=== PATIENT | female | born 2000 | race African-American/Black ===

== ENCOUNTER 2023-12-22 02:39 | Emergency (ER) | payer OTHER, MEDICAID, SELFPAY ==
[2023-12-22 02:41] VITALS: BP 127/74; PULSE 90; RESP 18; TEMP 36.8; O2SAT 99; BMI 36.0
--- NOTE | 2023-12-22 03:09 | MHC.EDTECH ---
Patient brought into triage area,labs,and urine obtained and sent to lab.
[2023-12-22 03:14] LABS: MANUAL DIFF FLAG NO
[2023-12-22 03:16] LABS: Basophils Percent Auto 0.6 % (0-2); Eosinophils Absolute Auto 0.1 X10*3/uL (0.0-0.4); Eosinophils Percent Auto 1.3 % (0-4); Hemoglobin 11.4 g/dl (12.0-16.0); Imm Gran Abs Auto 0.01 X10*3/uL (0.00-0.03); Imm Gran Pct Auto 0.1 % (0.0-0.4); Lymphocytes Absolute Auto 1.8 X10*3/uL (1.2-4.9); Lymphocytes Percent Auto 26.3 % (20-40); Mean Corpuscular HGB Conc 34.5 g/dl (31.0-35.0); Mean Corpuscular Hemoglobin 30.6 pg (27.0-33.0); Mean Corpuscular Volume 88.5 fL (80.0-98.0); Mean Platelet Volume 9.5 fL (9.4-12.3); Monocytes Absolute Auto 0.5 X10*3/uL (0.1-1.2); Monocytes Percent Auto 6.5 % (2-11); Neutrophils Absolute Auto 4.5 x10*3/uL (2.0-8.3); Neutrophils Percent Auto 65.2 % (45-73); Platelet Count 368 X10*3/uL (160-400); Red Blood Count 3.73 X10*6/uL (4.20-5.50); Red Cell Distribution Width 13.6 % (11.0-16.0); White Blood Count 6.9 X10*3/uL (4.8-10.8)
[2023-12-22 03:18] LABS: Appearance Urine Cloudy; Color Urine Yellow; Glucose Urine UA Negative (Negative); Leukocyte Esterase Urine Large (3+) (Negative); Nitrite Urine Negative (Negative); Specific Gravity - Urine 1.015 (1.005-1.025); UMIC TRIGGER UACC YES; UPreg QC Valid YES; Urine Blood Trace (Negative); Urine Ketones Negative (Negative); Urine Pregnancy NEGATIVE (NEGATIVE); Urine Protein 30 (1+) mg/dL (Neg-Trace)
[2023-12-22 03:21] LABS: Bacteria Urine 3+ (None Seen); Hyaline Casts Urine 0-2 /LPF (0-2); Squamous Epithelial Cell Urine 0-2 /HPF (0-2); UACC Culture Trigger YES; WBC Urine >50 /HPF (0-5)
[2023-12-22 03:31] LABS: Alanine Aminotransferase 11 U/L (0-31); Albumin Level 3.7 g/dL (3.5-5.0); Alkaline Phosphatase 80 U/L (39-117); Anion Gap 13 (12-20); Aspartate Amino Transferase 15 U/L (5-31); Bilirubin Total 0.1 mg/dL (0.0-1.0); Blood Urea Nitrogen 9 mg/dL (9-16); Carbon Dioxide 23 mmol/L (22-29); Chloride 107 mmol/L (96-108); Creatinine Clr Calc Pharmacy 136.8; Estimated Glomerular Filt Rate > 60; Glucose Random 102 mg/dL (60-115); Lipase 12 U/L (8-78); Sodium 139 mmol/L (135-145); Total Protein 7.2 g/dL (6.5-8.0)
[2023-12-22 06:34] VITALS: BP 118/70; PULSE 88; RESP 18; TEMP 36.6; O2SAT 99
--- NOTE | 2023-12-22 06:54 | ED_ITS ---
HPI - Female Genitourinary General Chief complaint: Urogenital-Female Stated complaint: stomach pain/lower back pain Time Seen by Provider: 12/22/23 06:54 History of Present Illness HPI Narrative: The patient is a 23-year-old female who says that she has felt unwell for about 5 days. She says it started with back pain subsequently developed abdominal discomfort. She also has discomfort with urination. She does not think she has had a fever or chills. She has been taking acetaminophen. Her last sexual intercourse was about a week and a half ago. No dyspareunia. No vaginal discharge. Related Data Previous Rx's ?Medication ?Instructions ?Recorded cefuroxime axetil 500 mg tablet 500 mg PO BID #14 tabs 12/22/23 ibuprofen 600 mg tablet 600 mg PO Q6H PRN pain #14 tabs 12/22/23 Allergies Allergy/AdvReac Type Severity Reaction Status Date / Time No Known Allergies Allergy Verified 12/22/23 02:44 Review of Systems 2 Review of Systems: Yes all other systems are reviewed and are negative [facility] Social History Social History Smoked in Last 30 Days: No Use of substances other than those prescribed or required for medical reasons: No Advance Directives: No Do you have a plan to hurt others: No Plan Physical Exam 2 Vital Signs: Vital Signs: Last Vital Signs Temp 0 F L 12/22/23 12:18 Pulse 75 12/22/23 12:18 Resp 18 12/22/23 12:18 BP 113/73 12/22/23 12:18 Pulse Ox 100 12/22/23 12:18 O2 Del Method Room Air 12/22/23 12:18 BMI result Body Mass Index 36.0 Const: Other: The patient is a 23-year-old female who was awake and alert. She looks somewhat uncomfortable. She seems to have discomfort moving around HEENT: Other: Face is unremarkable to inspection. Mucous membranes moist. Face is symmetrical. Eyes: Other: Pupils are round equal, conjunctivae are clear, extraocular movements intact Neck: Other: Neck is supple Resp: Effort & Inspection: normal respiratory effort Auscultation: clear to auscultation bilaterally Cardio: Rate: regular rate Rhythm: regular rhythm Heart sounds: S1 normal heart sound present and S2 normal heart sound present GI: Other: The abdomen seems soft. There seemed to be some left lower quadrant tenderness without significant rebound or guarding. Back/Spine/Pelvis: Other: There is possibly some left-sided CVA percussion tenderness. Skin: Other: Skin is dry and unremarkable Neuro: Other: The patient is awake and alert with a normal mental status Extrem: Other: No peripheral edema Medications Administered Discontinued Medications Generic Name Dose Route Start Last Admin Trade Name Feli PRN Reason Stop Dose Admin Sodium Chloride 1,000 mls @ 999 mls/hr 12/22/23 07:15 12/22/23 11:09 Ns IV 12/22/23 08:15 Infused .Q1H1M RICK Infusion Ceftriaxone Sodium 1 gm/ 50 mls @ 100 mls/hr 12/22/23 08:50 12/22/23 11:09 Sodium Chloride IV 12/22/23 09:19 Infused ONCE ONE Infusion Ketorolac Tromethamine 15 mg 12/22/23 07:02 12/22/23 07:42 Ketorolac Tromethamine 15 Mg/Ml Vial IVPUSH 12/22/23 07:03 15 mg ONCE ONE Administration Medical Decision Making Medical Decision Making [facility] Narrative: The patient is a 23-year-old female who presents with lower mid abdominal pain, back pain, and urinary discomfort. She denies any history of vaginal discharge. On exam she seemed to have some possible left-sided CVA percussion tenderness. Given the absence of fever or tachycardia or changes in her inflammatory markers on her blood work it is questionable whether she has true pyelonephritis. In any event she was given 1 g of IV ceftriaxone in case this is mild left-sided pyelonephritis and she will be discharged with a prescription for cefuroxime 500 mg b.i.d. x7 days. Her urinalysis was consistent with UTI. A urine specimen for GC and chlamydia was negative for both. The patient is new in this area and has not yet established a PCP. She was given contact information for 2 different doctors offices. She should return if worse. Lab Data 12/22/23 03:08 12/22/23 03:08 Labs: Lab Results 12/22/23 12/22/23 Range/Units 03:08 08:59 WBC 6.9 (4.8-10.8) X10*3/uL RBC 3.73 L (4.20-5.50) X10*6/uL Hgb 11.4 L (12.0-16.0) g/dl Hct 33.0 L (37.0-47.0) % MCV 88.5 (80.0-98.0) fL MCH 30.6 (27.0-33.0) pg MCHC 34.5 (31.0-35.0) g/dl RDW 13.6 (11.0-16.0) % Plt Count 368 (160-400) X10*3/uL MPV 9.5 (9.4-12.3) fL Immature Gran % (Auto) 0.1 (0.0-0.4) % Neut % (Auto) 65.2 (45-73) % Lymph % (Auto) 26.3 (20-40) % [place] % (Auto) 6.5 (2-11) % Eos % (Auto) 1.3 (0-4) % Baso % (Auto) 0.6 (0-2) % Lymph # (Auto) 1.8 (1.2-4.9) X10*3/uL [place] # (Auto) 0.5 (0.1-1.2) X10*3/uL Eos # (Auto) 0.1 (0.0-0.4) X10*3/uL Baso # (Auto) 0.0 (0.0-0.2) X10*3/uL Abs Immat Gran (auto) 0.01 (0.00-0.03) X10*3/uL Absolute Neuts (auto) 4.5 (2.0-8.3) x10*3/uL Absolute Nucleated RBC 0.000 (0.0-0.012) X10*3/uL Nucleated RBC % (auto) 0.0 (0.0-0.2) /100WBC Sodium 139 (135-145) mmol/L Potassium 4.0 (3.3-5.1) mmol/L Chloride 107 (96-108) mmol/L Carbon Dioxide 23 (22-29) mmol/L Anion Gap 13 (12-20) BUN 9 (9-16) mg/dL Creatinine 0.71 (0.5-1.4) mg/dL Estim Creat Clear Calc 136.8 Estimated GFR > 60 Random Glucose 102 (60-115) mg/dL Calcium 9.0 (8.4-10.2) mg/dL Total Bilirubin 0.1 (0.0-1.0) mg/dL AST 15 (5-31) U/L ALT 11 (0-31) U/L Alkaline Phosphatase 80 (39-117) U/L C-Reactive Protein 0.72 H (< or = 0.50) mg/dL Total Protein 7.2 (6.5-8.0) g/dL Albumin 3.7 (3.5-5.0) g/dL Lipase 12 (8-78) U/L Urine Color Yellow Urine Appearance Cloudy Urine pH 7.0 (5.0-9.0) Ur Specific [place] 1.015 (1.005-1.025) Urine Protein 30 (1+) H (Neg-Trace) mg/dL Urine Glucose (UA) Negative (Negative) mg/dL Urine Ketones Negative (Negative) mg/dL Urine Blood Trace H (Negative) Urine Nitrite Negative (Negative) Ur Leukocyte Esterase Large (3+) H (Negative) Urine RBC 6-10 H (0-2) /HPF Urine WBC >50 H (0-5) /HPF Ur Squamous Epith Cells 0-2 (0-2) /HPF Urine Bacteria 3+ (None Seen) Hyaline Casts 0-2 (0-2) /LPF Urine Test NEGATIVE (NEGATIVE) Chlam trachomat DNA PCR NOT DETECTED (Not Detect.) N.gonorrhoeae DNA (PCR) NOT DETECTED (Not Detect.) Discharge Plan Discharge Clinical Impression: Urinary tract infection Patient Disposition: Home, Self-Care Instructions: Urinary Tract Infection in Women (ED) Additional Instructions: You seem to have a urinary tract infection. It is possible the infection may be slightly involving your left kidney and therefore you are getting 7 days of antibiotics which is more than the 3 days for a simple UTI. Please take the prescribed antibiotic twice a day until done. Next dose this evening. I have also sent a prescription for ibuprofen which you may use as needed for discomfort. Please work on getting a new primary care doctor. You may try contacting Dr. Ramirez or the [facility]. Return to the emergency room if significantly worse. Prescriptions: New cefuroxime axetil 500 mg tablet 500 mg PO BID Qty: 14 0RF ibuprofen 600 mg tablet 600 mg PO Q6H PRN (Reason: pain) Qty: 14 0RF Referrals: [facility] [Provider Group] (UTI, needs new PCP) Ana Ramirez MD [Physician] - (UTI, needs new PCP) Interventions: ED Discharge Assessment Last Done: 12/22/23 12:18 Discharge Date/Time: 12/22/23 12:19 Print Language: Mozambican
[2023-12-22 07:18] VITALS: BP 109/69; PULSE 69; RESP 16; TEMP 36.6; O2SAT 100
[2023-12-22 07:24] LABS: C Reactive Protein 0.72 mg/dL (< or = 0.50)
[2023-12-22] MEDS: Ketorolac Tromethamine 15 MG/ML VIAL IVPUSH (07:42)
[2023-12-22] MEDS: 0.9 % Sodium Chloride 1,000 ML 999 ML IV (07:42)
[2023-12-22] MEDS: cefTRIAXone sodium 1 GM in 0.9 % Sodium Chloride 50 ML IV (09:24)
[2023-12-22 10:11] VITALS: BP 121/71; PULSE 75; RESP 14; TEMP 36.6; O2SAT 99
[2023-12-22 12:17] VITALS: BP 113/73; PULSE 75; RESP 18; O2SAT 100
[2023-12-22 12:18] VITALS: BP 113/73; PULSE 75; RESP 18; TEMP -17.7; TEMP 0; O2SAT 100
[2023-12-22 14:53] LABS: CT PCR NOT DETECTED (Not Detect.); NG PCR NOT DETECTED (Not Detect.)
== END 2023-12-22 12:19 | disposition home or self-care (01) ==
PROVIDERS: Emergency Provider Emergency Medicine
DX: N39.0 Urinary tract infection, site not specified (principal); R30.9 Painful micturition, unspecified; R10.9 Unspecified abdominal pain; M54.9 Dorsalgia, unspecified
CPT/HCPCS: 0353U; 36415; 80053; 81001; 81025; 83690; 85025; 86140; 87086; 87088; 87186; 96361; 96374; 96375; 99284; J0696; J1885

== ENCOUNTER 2024-01-26 10:46 | Outpatient (REF) | payer OTHER, MEDICAID, SELFPAY ==
[2024-01-26 11:37] LABS: MANUAL DIFF FLAG NO
[2024-01-26 11:40] LABS: Basophils Percent Auto 0.6 % (0-2); Eosinophils Absolute Auto 0.1 X10*3/uL (0.0-0.4); Eosinophils Percent Auto 2.4 % (0-4); Hematocrit 36.7 % (37.0-47.0); Hemoglobin 12.4 g/dl (12.0-16.0); Imm Gran Abs Auto 0.03 X10*3/uL (0.00-0.03); Imm Gran Pct Auto 0.6 % (0.0-0.4); Lymphocytes Absolute Auto 2.1 X10*3/uL (1.2-4.9); Lymphocytes Percent Auto 39.5 % (20-40); Mean Corpuscular HGB Conc 33.8 g/dl (31.0-35.0); Mean Corpuscular Hemoglobin 30.6 pg (27.0-33.0); Mean Corpuscular Volume 90.6 fL (80.0-98.0); Monocytes Absolute Auto 0.4 X10*3/uL (0.1-1.2); Monocytes Percent Auto 7.9 % (2-11); Neutrophils Absolute Auto 2.6 x10*3/uL (2.0-8.3); Platelet Count 415 X10*3/uL (160-400); Red Blood Count 4.05 X10*6/uL (4.20-5.50); Red Cell Distribution Width 13.9 % (11.0-16.0); White Blood Count 5.3 X10*3/uL (4.8-10.8)
[2024-01-26 11:46] LABS: Estimated Average Glucose 117 mg/dL; Hemoglobin A1c % 5.7 % (<6.0)
[2024-01-26 12:08] LABS: Creatinine Urine 133.48 mg/dL; Total Protein Urine Random < 7 mg/dL (<12)
[2024-01-26 12:11] LABS: Alanine Aminotransferase 12 U/L (0-31); Albumin Level 4.1 g/dL (3.5-5.0); Alkaline Phosphatase 81 U/L (39-117); Anion Gap 9 (12-20); Aspartate Amino Transferase 21 U/L (5-31); Bilirubin Total 0.2 mg/dL (0.0-1.0); Blood Urea Nitrogen 10 mg/dL (9-16); Calcium 9.6 mg/dL (8.4-10.2); Carbon Dioxide 27 mmol/L (22-29); Chloride 107 mmol/L (96-108); Cholesterol 234 mg/dL (<200); Estimated Glomerular Filt Rate > 60; Glucose Random 81 mg/dL (60-115); HDL Cholesterol 37 mg/dL (>40); LDL Cholesterol Calculated 171 mg/dL (<100); Sodium 139 mmol/L (135-145); Total Protein 8.1 g/dL (6.5-8.0); Triglycerides 133 mg/dL (<150)
[2024-01-26 12:28] LABS: Thyroid Stimulating Hormone 1.48 uIU/mL (0.32-4.0)
[2024-01-31 21:53] LABS: TS Negative Control Passed; TS Panel A 1; TS Panel B 4; TS Positive Control Passed; TSpotTB Negative (Negative)
== END 2024-01-26 10:47 | disposition home or self-care (01) ==
LOC: HO.10HDL 10:46
PROVIDERS: Visit Provider Internal Medicine
DX: Z00.01 Encounter for general adult medical examination with abnormal findings (principal); R73.01 Impaired fasting glucose; I10 Essential (primary) hypertension; E66.9 Obesity, unspecified; Z11.1 Encounter for screening for respiratory tuberculosis
CPT/HCPCS: 36415; 80053; 80061; 82570; 83036; 84156; 84443; 85025; 86481

== ENCOUNTER 2024-04-26 09:25 | Outpatient (REF) | payer MEDICAID, SELFPAY ==
[2024-04-26 11:56] LABS: HBS Num1 8.19 mIU/mL (0-7.99)
[2024-04-26 13:23] LABS: HBS Num2 7.94 mIU/mL (0-7.99); HBS Num3 8.16 mIU/mL (0-7.99)
[2024-04-26 13:24] LABS: ~Hepatitis B Surface Antibody GRAYZONE (Nonreactive)
[2024-04-28 06:23] LABS: Varicella IgG Antibody 5.89 S/CO
== END 2024-04-26 09:26 | disposition home or self-care (01) ==
LOC: HO.10HDL 09:25
PROVIDERS: Visit Provider Internal Medicine
DX: Z01.84 Encounter for antibody response examination (principal); E78.00 Pure hypercholesterolemia, unspecified; I10 Essential (primary) hypertension; N30.00 Acute cystitis without hematuria; R63.5 Abnormal weight gain
CPT/HCPCS: 36415; 86706; 86735; 86762; 86765; 86787

== ENCOUNTER 2024-06-03 12:29 | Emergency (ER) | payer MEDICAID, SELFPAY ==
--- NOTE | ~2024-06-03 | XR_ITS ---
EXAMINATION: XR CHEST CLINICAL INFORMATION: dyspnea on exertion COMPARISON: None available. TECHNIQUE: PA and lateral views of the chest were obtained. FINDINGS: The lungs are hypoexpanded with bibasilar streaky opacities. No dense focal consolidation, effusion, edema, or pneumothorax. The cardiomediastinal silhouette is within normal limits for technique. No acute osseous abnormality. XR/XR chest 2V IMPRESSION: Low lung volumes with bibasilar atelectasis. Electronically signed by: Osiris Koenig DO 06/03/2024 07:12 PM EDT
[2024-06-03 12:46] VITALS: BP 132/79; PULSE 100; RESP 18; TEMP 37.1; O2SAT 100; BMI 38.1
--- NOTE | 2024-06-03 12:46 | ED_ITS ---
HPI - General Adult General Chief complaint: Dyspnea Stated complaint: diff breathing Time Seen by Provider: 06/03/24 15:30 Source: patient Mode of arrival: ambulatory Limitations: no limitations History of Present Illness ED Provider: Dr. Sreekanth Ramirez HPI narrative: 24-year-old female with no significant past medical history who presents emergency department for evaluation of pleuritic chest pain and shortness of breath times 4 days. She states that her chest pain initially came on at rest 4 days prior while she was reading out loud. She states that she felt better but over the last several days she has noticed increased dyspnea on exertion, chest pain worse with breathing and chest pain with lying flat. She states that today while she was walking up the hill to get to the hospitalist she became very winded and fatigued why the time she made it to the hospital. Patient points to her anterior chest when asked to localize her pain. She describes the pain as a sharp pain worse with breathing. She denied associated symptoms such as fever, chills, rhinorrhea, sore throat, cough. She was not on control pills. She was not gone on a long trips or had any recent surgeries. The patient uses an aislinn to track her menstrual periods and states that her last menstrual period was May 08 to May 11. She states that the aislinn identified ovulation between May 18 and May 20. The patient did have sex on May 20. The patient was not trying to get . The next day she took plan B One step. The patient is a . Related Data Previous Rx's ?Medication ?Instructions ?Recorded cefuroxime axetil 500 mg tablet 500 mg PO BID #14 tabs 12/22/23 ibuprofen 600 mg tablet 600 mg PO Q6H PRN pain #14 tabs 12/22/23 Allergies Allergy/AdvReac Type Severity Reaction Status Date / Time No Known Allergies Allergy Verified 06/03/24 12:48 Review of Systems 2 Review of Systems: Yes all other systems are reviewed and are negative [facility] Past Medical History [facility] Narrative: Social history: She denies tobacco, alcohol and drug use. Social History Social History Advance Directives: No Advance Directives Information Provided: No Do you have a plan to hurt others: No Plan Physical Exam ED Vital Signs: Vital Signs - 24 hr 06/03/24 12:46 06/03/24 15:01 06/03/24 16:46 Temperature 98.7 F 97.8 F 98.3 F Pulse Rate 100 73 71 Respiratory Rate 18 14 14 Blood Pressure 132/79 111/59 L 123/79 Pulse Oximetry 100 100 100 Oxygen Delivery Method Room Air Room Air Room Air 06/03/24 19:13 Temperature 98.3 F Pulse Rate 71 Respiratory Rate 14 Blood Pressure 123/79 Pulse Oximetry 100 Oxygen Delivery Method Room Air BMI result Body Mass Index 38.1 Patient's vital signs revealed an elevated heart rate at 100 Exam: General: Awake, alert in no distress Head: Normocephalic, atraumatic EENT: PERRL, Lids normal, sclera normal, conjunctiva normal, nose normal , ears normal, throat without erythema or exudates Neck: Supple, no adenopathy Lung: breath sounds symmetric, no wheezing, rales or rhonchi Chest: symmetric movement, nontender Heart: regular rate and rhythm, normal S1, S2 no murmurs or rubs Abdomen: soft, non-tender, nondistended, normal bowel sounds Back: no vertebral tenderness, no CVAT Extremities: no deformities, moves all extremities symmetrically Neuro: Awake, alert, oriented, normal speech, cranial nerves intact, moves all extremities symmetrically Psych: Pleasant, cooperative Course Course Course Narrative: This is a Rapid Medical Examination (RME) performed by Yovana Still PA-C in triage. Full HPI, ROS, assessment and treatment plan per primary provider in the Main ED. 24 yo female here for eval of shortness of breath x4 days, worse with exertion and laying down. endorses sharp chest pain w/ deep breathing. no OCP. no recent travel/ long car rides. no known sick contacts. no hx asthma. +tachycardic. obese female. lungs clear. no adventitious breath sounds. Plan: labs, EKG, cxr Reevaluation(s) Reevaluation #1: The patient was signed out to me at change of shift pending the results of a D- dimer. The D-dimer came back undetectable. The patient was looking clinically well. There is a strange question of whether she is or not. Her urine test is negative but her serum beta HCG is 19. The patient was eager to be discharged from the emergency department. I recommended we do a chest x- ray given her description of her symptoms. Chest x-ray was read as showing low lung volumes with bibasilar atelectasis but no other acute findings. On exam I did not feel she was wheezing. She was eager to be discharged from the emergency room I think she should follow up with her PCP with regard to her shortness of breath and she should follow up with OBGYN regarding whether she actually has a viable or not. She had apparently taken plan B several days ago. Medical Decision Making Medical Decision Making [facility] Narrative: 24-year-old female with no significant past medical history who presents emergency department for evaluation of pleuritic chest pain worse with lying down flat, and shortness of breath times 4 days. Patient denied fever, chills, cough, rhinorrhea, lower extremity pain or swelling. Patient is not on control pills in his not gone on any long trips. Vital signs did reveal an elevated heart rate of 100 otherwise unremarkable. Physical examination was unremarkable. Differential diagnosis: ?Includes but is not limited to pleuritic chest pain, pulmonary embolism, myocardial infarction, myocardial ischemia, pericarditis, , electrolyte abnormalities, anemia Following evaluation was ordered: CBC, CMP, lipase, magnesium, PT/INR, D-dimer, troponin, TSH, quantitative beta-hCG, urinalysis, urine test, COVID- 19, influenza, RSV Course: 16:31 My impression patient's laboratory evaluation is as follows: CBC and CMP were normal. Troponin was below detectable limits. COVID-19, RSV and influenza were negative. TSH was normal. Urinalysis positive leukocyte esterase, microscopic 6-10 WBCs, 6-10 squamous cells, trace bacteria-not consistent with a urinary tract infection. Urine test was negative. Quantitative beta-hCG was 19. The patient had an elevated heart rate of 100 therefore she was PERC positive. Patient also has a positive quantitative beta-hCG and based on her last menstrual period, time of ovulation and time when she had intercourse that is possible she could be despite taking plan B step One within 72 hours of intercourse. Therefore, I did order a D-dimer which is pending. I did discuss these findings with the patient. At the end of my shift, I did sign the patient's care over to my colleague, Dr. Samy Butler Admission/Observation Consideration of admission/observation: Escalation of care including admission/observation considered (Yes) Lab Data [facility] Lab Attestation statement: I reviewed the patient's lab results. 06/03/24 13:09 06/03/24 13:09 Labs: Lab Results 06/03/24 06/03/24 Range/Units 13:09 15:05 WBC 5.7 (4.8-10.8) X10*3/uL RBC 4.15 L (4.20-5.50) X10*6/uL Hgb 12.3 (12.0-16.0) g/dl Hct 37.0 (37.0-47.0) % MCV 89.2 (80.0-98.0) fL MCH 29.6 (27.0-33.0) pg MCHC 33.2 (31.0-35.0) g/dl RDW 14.0 (11.0-16.0) % Plt Count 390 (160-400) X10*3/uL MPV 9.8 (9.4-12.3) fL Immature Gran % (Auto) 0.4 (0.0-0.4) % Neut % (Auto) 57.6 (45-73) % Lymph % (Auto) 32.0 (20-40) % [place] % (Auto) 6.7 (2-11) % Eos % (Auto) 2.8 (0-4) % Baso % (Auto) 0.5 (0-2) % Lymph # (Auto) 1.8 (1.2-4.9) X10*3/uL [place] # (Auto) 0.4 (0.1-1.2) X10*3/uL Eos # (Auto) 0.2 (0.0-0.4) X10*3/uL Baso # (Auto) 0.0 (0.0-0.2) X10*3/uL Abs Immat Gran (auto) 0.02 (0.00-0.03) X10*3/uL Absolute Neuts (auto) 3.3 (2.0-8.3) x10*3/uL Absolute Nucleated RBC 0.000 (0.0-0.012) X10*3/uL Nucleated RBC % (auto) 0.0 (0.0-0.2) /100WBC PT 12.3 (10.9-12.4) SEC INR 1.1 (0.9-1.1) D-Dimer High Sensitivty < 150 NG/ML Sodium 139 (135-145) mmol/L Potassium 3.9 (3.3-5.1) mmol/L Chloride 106 (96-108) mmol/L Carbon Dioxide 27 (22-29) mmol/L Anion Gap 10 L (12-20) BUN 9 (9-16) mg/dL Creatinine 0.73 (0.5-1.4) mg/dL Estim Creat Clear Calc 136.0 Estimated GFR > 60 Random Glucose 95 (60-115) mg/dL Calcium 9.6 (8.4-10.2) mg/dL Magnesium 2.0 (1.6-2.6) mg/dL Total Bilirubin 0.2 (0.0-1.0) mg/dL AST 21 (5-31) U/L ALT 17 (0-31) U/L Alkaline Phosphatase 85 (39-117) U/L Troponin I High Sens < 2.7 (<3.5-17.0) ng/L Total Protein 7.5 (6.5-8.0) g/dL Albumin 3.9 (3.5-5.0) g/dL Lipase 13 (8-78) U/L TSH 1.18 (0.32-4.0) uIU/mL Beta HCG, Quant 19 mIU/mL Urine Color Yellow Urine Appearance Clear Urine pH 7.5 (5.0-9.0) Ur Specific [place] 1.015 (1.005-1.025) Urine Protein Negative (Neg-Trace) mg/dL Urine Glucose (UA) Negative (Negative) mg/dL Urine Ketones Negative (Negative) mg/dL Urine Blood Negative (Negative) Urine Nitrite Negative (Negative) Ur Leukocyte Esterase Small (1+) H (Negative) Urine RBC 0-2 (0-2) /HPF Urine WBC 6-10 H (0-5) /HPF Ur Squamous Epith Cells 6-10 (0-2) /HPF Urine Bacteria Trace (None Seen) Hyaline Casts 0-2 (0-2) /LPF Urine Test NEGATIVE (NEGATIVE) Influenza Type A (PCR) NEGATIVE (Negative) Influenza Type B (PCR) NEGATIVE (Negative) RSV RNA Qual (PCR) NEGATIVE (Negative) SARS-CoV-2 RNA (RT-PCR) NEGATIVE (Negative) Independent Interpretation I performed an independent interpretation of an: EKG Interpretation: My independent interpretation of the patient's 12 EKG done at 12:52 hours is as follows: Normal sinus rhythm with a rate of 93, normal WI interval, QRS duration QTC interval, no ST segment elevation, no ST segment depression, no significant T-wave abnormalities, no PACs, no PVCs Discharge Plan Discharge Clinical Impression: Pleuritic chest pain, MEZA (dyspnea on exertion), Elevated serum hCG Patient Disposition: Home, Self-Care Additional Instructions: Your testing with your shortness of breath seems reassuring. Please plan on following up with your regular doctor to talk about this further. It is not clear whether you have a viable ongoing . I have given you the name and number of the OBGYN doctor (Dr. Man) for this hospital. You may call on Wednesday to set up a follow up appointment to see if they can see you to help determine the status of whether or not you are still . You can also try doing another home test in 2 days. If you feel significantly worse please return to the emergency department. Prescriptions: No Action cefuroxime axetil 500 mg tablet 500 mg PO BID Qty: 14 0RF ibuprofen 600 mg tablet 600 mg PO Q6H PRN (Reason: pain) Qty: 14 0RF Referrals: Ana Ramirez MD [Primary Care Provider] - (Dyspnea on exertion) Stephen Man MD [Physician] - (Question of ongoing , negative urine , serum HCG 19) Interventions: ED Discharge Assessment Last Done: 06/03/24 19:13 Discharge Date/Time: 06/03/24 19:13 Print Language: Latvian
--- NOTE | 2024-06-03 12:49 | ECG_ITS ---
Test Reason : TACHY/ CHEST PAIN Blood Pressure : / mmHG Vent. Rate : 093 BPM Atrial Rate : 093 BPM P-R Int : 154 ms QRS Dur : 082 ms QT Int : 340 ms P-R-T Axes : 071 010 036 degrees QTc Int : 422 ms Normal sinus rhythm with sinus arrhythmia Normal ECG No previous ECGs available Referred By: Vania Still Electronically Signed By:Javi Melgar
[2024-06-03 13:15] LABS: MANUAL DIFF FLAG NO
[2024-06-03 13:16] LABS: Basophils Percent Auto 0.5 % (0-2); Eosinophils Absolute Auto 0.2 X10*3/uL (0.0-0.4); Eosinophils Percent Auto 2.8 % (0-4); Hemoglobin 12.3 g/dl (12.0-16.0); Imm Gran Abs Auto 0.02 X10*3/uL (0.00-0.03); Imm Gran Pct Auto 0.4 % (0.0-0.4); Lymphocytes Absolute Auto 1.8 X10*3/uL (1.2-4.9); Mean Corpuscular HGB Conc 33.2 g/dl (31.0-35.0); Mean Corpuscular Hemoglobin 29.6 pg (27.0-33.0); Mean Corpuscular Volume 89.2 fL (80.0-98.0); Mean Platelet Volume 9.8 fL (9.4-12.3); Monocytes Absolute Auto 0.4 X10*3/uL (0.1-1.2); Monocytes Percent Auto 6.7 % (2-11); Neutrophils Absolute Auto 3.3 x10*3/uL (2.0-8.3); Neutrophils Percent Auto 57.6 % (45-73); Platelet Count 390 X10*3/uL (160-400); Red Blood Count 4.15 X10*6/uL (4.20-5.50); White Blood Count 5.7 X10*3/uL (4.8-10.8)
[2024-06-03 13:21] LABS: INTERNATIONAL NORM RATIO 1.1 (0.9-1.1); Prothrombin Time 12.3 SEC (10.9-12.4)
[2024-06-03 13:32] LABS: Alanine Aminotransferase 17 U/L (0-31); Albumin Level 3.9 g/dL (3.5-5.0); Alkaline Phosphatase 85 U/L (39-117); Anion Gap 10 (12-20); Aspartate Amino Transferase 21 U/L (5-31); Bilirubin Total 0.2 mg/dL (0.0-1.0); Blood Urea Nitrogen 9 mg/dL (9-16); Calcium 9.6 mg/dL (8.4-10.2); Carbon Dioxide 27 mmol/L (22-29); Chloride 106 mmol/L (96-108); Estimated Glomerular Filt Rate > 60; Glucose Random 95 mg/dL (60-115); Lipase 13 U/L (8-78); Potassium 3.9 mmol/L (3.3-5.1); Sodium 139 mmol/L (135-145); Total Protein 7.5 g/dL (6.5-8.0)
[2024-06-03 13:38] LABS: HCG Quantitative 19 mIU/mL
[2024-06-03 13:51] LABS: TSH reflex Free T4 1.18 uIU/mL (0.32-4.0)
[2024-06-03 13:58] LABS: Influenza A PCR NEGATIVE (Negative); Influenza B PCR NEGATIVE (Negative); Resp Syncy Virus RNA Qual PCR NEGATIVE (Negative); SARS COV2 PCR INHOUSE NEGATIVE (Negative)
[2024-06-03 14:31] LABS: Troponin-I High Sensitivity < 2.7 ng/L (<3.5-17.0)
[2024-06-03 15:01] VITALS: BP 111/59; PULSE 73; RESP 14; TEMP 36.6; O2SAT 100
[2024-06-03 15:33] LABS: Appearance Urine Clear; Color Urine Yellow; Glucose Urine UA Negative (Negative); Leukocyte Esterase Urine Small (1+) (Negative); Nitrite Urine Negative (Negative); PH 7.5 (5.0-9.0); Specific Gravity - Urine 1.015 (1.005-1.025); UMIC TRIGGER UACC YES; Urine Blood Negative (Negative); Urine Ketones Negative (Negative); Urine Protein Negative (Neg-Trace)
[2024-06-03 15:35] LABS: UPreg QC Valid YES; Urine Pregnancy NEGATIVE (NEGATIVE)
[2024-06-03 15:57] LABS: Bacteria Urine Trace (None Seen); Hyaline Casts Urine 0-2 /LPF (0-2); RBC Urine 0-2 /HPF (0-2); UACC Culture Trigger YES
[2024-06-03 16:46] VITALS: BP 123/79; PULSE 71; RESP 14; TEMP 36.8; O2SAT 100
[2024-06-03 17:11] LABS: D Dimer High Sensitivity < 150 NG/ML
--- NOTE | 2024-06-03 17:25 | PC.NURSE ---
patient requesting to be discharged, stating that she is hungry and would like to go home. offered food/drink while here patient declined wanting to be discharged and go home.
[2024-06-03 19:13] VITALS: BP 123/79; PULSE 71; RESP 14; TEMP 36.8; O2SAT 100
== END 2024-06-03 19:13 | disposition home or self-care (01) ==
PROVIDERS: Emergency Medicine Emergency Medical Services; Physician Assistant Medical; Emergency Provider Emergency Medicine; PCP Internal Medicine
DX: R07.89 Other chest pain (principal); R06.02 Shortness of breath; R00.0 Tachycardia, unspecified; R06.09 Other forms of dyspnea; Z33.1 Pregnant state, incidental; Z03.818 Encounter for observation for suspected exposure to other biological agents ruled out
CPT/HCPCS: 0241U; 36415; 71046; 80053; 81001; 81025; 83690; 83735; 84443; 84484; 84702; 85025; 85379; 85610; 87086; 93005; 99283; 99285

== ENCOUNTER → 2024-06-03 12:49 | Outpatient (BNV) | payer MEDICAID, SELFPAY | PROVIDERS: Emergency Provider Emergency Medicine; PCP Internal Medicine; Visit Provider Internal Medicine Cardiovascular Disease | DX: R07.9 Chest pain, unspecified (principal) | CPT/HCPCS: 93010 ==

== ENCOUNTER 2024-06-06 13:43 | Outpatient (REF) | payer MEDICAID, SELFPAY ==
[2024-06-06 14:18] LABS: HCG Quantitative 37 mIU/mL
== END 2024-06-06 13:44 | disposition home or self-care (01) ==
LOC: HO.LAB 13:43
PROVIDERS: PCP Internal Medicine; Visit Provider Obstetrics & Gynecology
DX: Z34.90 Encounter for supervision of normal pregnancy, unspecified, unspecified trimester (principal)
CPT/HCPCS: 36415; 84702; 99212

== ENCOUNTER 2024-06-06 15:38 | Outpatient (AMB) | payer MEDICAID, SELFPAY ==
[2024-06-06 15:48] VITALS: BMI 38.1
--- NOTE | 2024-06-06 15:48 | MHC.OFFVIS ---
Vital Signs 06/06/24 15:48 Height 5 ft 4 in Weight 222 lb BMI 38.1 Intake Visit Reasons: Lab Follow up Intake Note: Pt took Plan B 05/22/24. Allergies No Known Allergies Allergy (Verified 06/06/24 15:48) HPI Comments Details: Presenting for ER follow-up. The patient went to the emergency room hCG was 19 on 06/03. No complaints no pelvic cramping or pain or vaginal bleeding. HCG repeated today was 37. 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 vitamin 1 tablet p.o. q.d. sent to the patient's pharmacy. HCG quantitative in 48 hours. Instructions given the patient to schedule a follow-up appointment 2 days. All questions answered, the patient verbalized understanding Orders: Orders HCG Quantitative 06/08/24 Z34.90 - Encounter for supervision of normal , unspecified, unspecified trimester Medications: New no.144-folic acid 400 mcg 1 tab PO DAILY 180 days 180 tabs 1RF Discontinued cefuroxime axetil Discontinued Reason: Patient no longer taking 500 mg PO BID 14 tabs 0RF ibuprofen Discontinued Reason: Patient no longer taking 600 mg PO Q6H PRN 14 tabs 0RF pain Coding Level of Care Code Est Pt Level 3 (97864) Diagnoses Early stage of Z34.90
== END 2024-06-06 16:04 | disposition home or self-care (01) ==
LOC: HO.HWS 15:38
PROVIDERS: PCP Internal Medicine; Visit Provider Obstetrics & Gynecology
DX: Z34.90 Encounter for supervision of normal pregnancy, unspecified, unspecified trimester (principal)
CPT/HCPCS: 99213

== ENCOUNTER 2024-06-08 12:22 | Outpatient (REF) | payer OTHER, SELFPAY ==
[2024-06-08 14:26] LABS: HCG Quantitative 20 mIU/mL
== END 2024-06-08 12:23 | disposition home or self-care (01) ==
LOC: HO.LAB 12:22
PROVIDERS: PCP Internal Medicine; Visit Provider Obstetrics & Gynecology
DX: Z34.90 Encounter for supervision of normal pregnancy, unspecified, unspecified trimester (principal)
CPT/HCPCS: 36415; 84702; 99212

== ENCOUNTER 2024-06-08 15:48 | Outpatient (AMB) | payer OTHER, SELFPAY ==
--- NOTE | 2024-06-08 16:01 | MHC.OFFVIS ---
Intake Visit Reasons: Blood work follow up Allergies No Known Allergies Allergy (Verified 06/06/24 15:48) HPI Comments Details: The patient is presenting for hCG follow-up with no complaints no pelvic cramping and or bleeding. 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 SAB warnings given the patient, she is to call the emergency room or call in case of pelvic cramping or bleeding. Instructions given to patient to have HCG repeated q.48h x2 and schedule a follow-up appointment on Wednesday. Order placed Orders: Orders HCG Quantitative 06/12/24 Z34.90 - Encounter for supervision of normal , unspecified, unspecified trimester HCG Quantitative 06/10/24 Z34.90 - Encounter for supervision of normal , unspecified, unspecified trimester Coding Level of Care Code Est Pt Level 3 (48871) Diagnoses Early stage of Z34.90
== END 2024-06-08 16:01 | disposition home or self-care (01) ==
LOC: HO.HWS 15:48
PROVIDERS: PCP Internal Medicine; Visit Provider Obstetrics & Gynecology
DX: Z34.90 Encounter for supervision of normal pregnancy, unspecified, unspecified trimester (principal)
CPT/HCPCS: 99213

== ENCOUNTER 2024-06-10 09:39 | Outpatient (REF) | payer OTHER, SELFPAY ==
[2024-06-10 10:38] LABS: HCG Quantitative 7 mIU/mL
== END 2024-06-10 09:40 | disposition home or self-care (01) ==
LOC: HO.LAB 09:39
PROVIDERS: PCP Internal Medicine; Visit Provider Obstetrics & Gynecology
DX: Z34.90 Encounter for supervision of normal pregnancy, unspecified, unspecified trimester (principal)
CPT/HCPCS: 36415; 84702

== ENCOUNTER 2024-06-12 09:59 | Outpatient (AMB) | payer OTHER, SELFPAY ==
--- NOTE | 2024-06-12 09:59 | A.OFFVIS_ITS ---
Intake Visit Reasons: Lab follow up/OK per Allergies No Known Allergies Allergy (Verified 06/12/24 09:59) HPI Comments Details: The patient is scheduled tele health visit for hCG follow-up. Started her menstrual cycle 2 days ago it is light non crampy, no pelvic pain and no other associated symptoms. 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 Review of Systems Const All systems reviewed & are unremarkable except as noted in HPI and below Reports as per HPI and Reports no additional complaints GI Reports no additional complaints Reports no additional complaints Telehealth Telehealth Telehealth Platform: Telephone Location of provider rendering services: practice address Location of patient: address on file Patient Identification confirmed using: Name, : Yes Telehealth method: video Patient verbally consented to treatment: Yes Patient verbally consented to billing insurance company: Yes Patient informed of any privacy concerns related to visit: Yes Assessment & Plan Assessment & Plan (1) SAB (spontaneous ): Code(s): O03.9 - Complete or unspecified spontaneous without complication Category: Medical Plan: Discussed with the patient the results of hCG dropping down to 7. Signs and symptoms of incomplete were discussed with the patient, instructions given the patient to call in case of heavy vaginal bleeding and or pelvic pain. Will repeat hCG in 1 week. Instructions given the patient to schedule an appointment in a week. All questions answered, the patient verbalized understanding. I spent a total of 20 minutes reviewing the chart, talking to the patient via video and documenting in the medical record. Orders: Orders HCG Quantitative 1 Week O03.9 - Complete or unspecified spontaneous without complication Coding Level of Care Code Tele Est Pt Level 1 (10667) Diagnoses SAB (spontaneous ) O03.9
== END 2024-06-12 10:10 | disposition home or self-care (01) ==
LOC: HO.HWS 09:59
PROVIDERS: PCP Internal Medicine; Visit Provider Obstetrics & Gynecology
DX: O03.9 Complete or unspecified spontaneous abortion without complication (principal)
CPT/HCPCS: 99211

== ENCOUNTER → 2024-06-12 09:59 | Outpatient (BNVA) | payer OTHER, SELFPAY | PROVIDERS: PCP Internal Medicine; Visit Provider Obstetrics & Gynecology ==

== ENCOUNTER 2024-06-23 07:47 | Outpatient (REF) | payer OTHER, SELFPAY ==
[2024-06-23 08:32] LABS: HCG Quantitative < 2 mIU/mL
== END 2024-06-23 07:48 | disposition home or self-care (01) ==
LOC: HO.LAB 07:47
PROVIDERS: Visit Provider Obstetrics & Gynecology
DX: Z34.90 Encounter for supervision of normal pregnancy, unspecified, unspecified trimester (principal)
CPT/HCPCS: 36415; 84702

== ENCOUNTER 2024-06-26 10:36 | Outpatient (AMB) | payer OTHER, SELFPAY ==
--- NOTE | 2024-06-26 10:37 | MHC.OFFVIS ---
Intake Visit Reasons: HCG results Allergies No Known Allergies Allergy (Verified 06/12/24 09:59) HPI Comments Details: The patient is scheduled tele health visit for hCG follow-up. Started her menstrual cycle 2 days ago it is light non crampy, no pelvic pain and no other associated symptoms. 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 Review of Systems Const All systems reviewed & are unremarkable except as noted in HPI and below Reports as per HPI and Reports no additional complaints GI Reports no additional complaints Reports no additional complaints Telehealth Telehealth Telehealth Platform: Telephone Location of provider rendering services: practice address Location of patient: address on file Patient Identification confirmed using: Name, : Yes Telehealth method: video Patient verbally consented to treatment: Yes Patient verbally consented to billing insurance company: Yes Patient informed of any privacy concerns related to visit: Yes Assessment & Plan Assessment & Plan (1) Complete : Code(s): O03.9 - Complete or unspecified spontaneous without complication Category: Medical Plan: Discussed with the patient the results hCG less than 2. Incomplete signs and symptoms were discussed with the patient, she is to call or go to emergency room in case of pelvic cramping and or pain, fever above 100.4. All questions answered, the patient verbalized understanding. (2) Family planning: Code(s): Z30.09 - Encounter for other general counseling and advice on contraception Category: Social Hx Plan: Discussed with the patient the different options of control including control pills/Nuvaring, Depo Medroxy Progesterone Acetate, IUD ( levonorgestrel, Copper), sterilization. All the pros, cons, risks and benefits of each were discussed with the patient. The patient decided to think about it and get back to us. Instructions given the patient to use a backup method for control call back when ready for decision. All questions answered, the patient verbalized understanding. I spent a total of 20 minutes reviewing the chart, talking to the patient via video and documenting in the medical record. Coding Level of Care Code Est Pt Level 3 (38050) Diagnoses Complete O03.9 Family planning Z30.09
== END 2024-06-26 12:05 | disposition home or self-care (01) ==
LOC: HO.HWS 10:36
PROVIDERS: PCP Internal Medicine; Visit Provider Obstetrics & Gynecology
DX: O03.9 Complete or unspecified spontaneous abortion without complication (principal); Z30.09 Encounter for other general counseling and advice on contraception
CPT/HCPCS: 99213

== ENCOUNTER → 2024-06-26 10:36 | Outpatient (BNVA) | payer OTHER, SELFPAY | PROVIDERS: PCP Internal Medicine; Visit Provider Obstetrics & Gynecology | DX: O03.9 Complete or unspecified spontaneous abortion without complication (principal); Z30.09 Encounter for other general counseling and advice on contraception | CPT/HCPCS: 99212 ==

== ENCOUNTER 2025-01-25 09:42 | Outpatient (REF) | payer MEDICAID, SELFPAY ==
--- OUTSIDE RECORDS SUMMARY | 2025-01-25 10:40 | XMS_ITS | Clinical Summary ---
Author Organization [employer] Address [address] [place] [address] Care Team Providers Care Advanced Nursing Professor Name Role Phone Unavailable Primary Care Provider Unavailabl e Allergies No known active allergies Medications ibuprofen 600 MG tabletIndicatio ns:Pericoroniti s Take 1 tablet (600 mg) by mouth every 6 (six) hours if needed for mild pain for up to 20 doses. 20 tablet Active chlorhexidine (Peridex) 0.12 % solutionIndicat ions:Pericoroni tis Swish 15 mL morning and night for 1 minute. Spit, do not swallow. Do not eat or drink for 30 minutes following use. 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 Social History Tobacco Use Types Packs/Day Years Used Date Smoking Tobacco: Never Smokeless Tobacco: Never Tobacco Cessation:Counseling Given: Not Answered Alcohol Use Standard Drinks/Week Comments Never 0 (1 standard drink = 0.6 oz pur e alcohol) Comments Unknown Sex and Gender Information Value Date Recorded Sex Assigned at Female 05/19/2024 10:05 AM EDT Legal Sex Female 10:03 AM EDT Gender Identity Female 05/19/2024 10:05 AM EDT Sexual Orientation Straight 05/19/2024 10 :05 AM EDT Last Filed Vital Signs Vital Sign Reading Time Taken Comments Blood Pressure 136/82 10/18/2024 1:03 PM EDT Pulse - - Temperature - - Respiratory Rate - - Oxygen Saturation - - Inhaled Oxygen Concentration - - Weight - - Height - - Body Mass Index - - Plan of Treatment Upcoming Encounters Date Type Department Care Team ([facility] st Contact Info) Description 04/25/2025 1:00 PM EDT Office Visit [facility] ADULT D[facility] [address] [place] [address] Milli Kohler Health Maintenance Due Date Last Done Comments Depression Screening 1999 HIV Screening 1999 SDOH Screening 1999 Disability Screening 1999 Alcohol/Substance Use Screening 2011 Family Planning (PISQ) 2014 HPV Vaccines (1 - 3-dose series) 2014 Hepatitis C Screening 2017 DTaP/Tdap/Td Vaccines (1 - Tdap) 2018 Hepatitis B Vaccines (1 of 3 - 19+ 3-dose series) 2018 Pap Smear 01/28/2020 COVID-19 Vaccine ( - 2023-2 5 season) 2024 Influenza Vaccine (Season Ended) 2025 Dental Oral Exam 04/20/2025 10/17/2024 Dental Prophylaxis 04/21/2025 10/18/2024 Dental X-Ray: Bitewings 10/18/2025 10/17/2024 Tobacco Screening 10/18/2025 10/18/2024 Dental X-Ray: Full Mouth 10/19/2027 025, 08/17/2024 Zoster Vaccines (1 of 2) 2049 RSV Patients and Patients Aged 60 years or older (1 - 1-dose 75+ series) 2074 HIB Vaccines Aged Out No longer eligi ble based on patient's age to complete this topic Hepatitis A Vaccines Aged Out No long er eligible based on patient's age to complete this topic IPV Vaccines Aged Out No longer eligi ble based on patient's age to complete this topic Meningococcal B Vaccine Aged Out No l onger eligible based on patient's age to complete this topic Meningococcal Vaccine Aged Out No zach imer eligible based on patient's age to complete this topic Pneumococcal Vaccine: Pediatrics (0 to 5 Years) and At-Risk Patients (6 to 49) Years Aged Out No longer eligible b ased on patient's age to complete this topic RSV under 20 months Aged Out No longe r eligible based on patient's age to complete this topic Rotavirus Vaccines Aged Out No longer eligible based on patient's age to complete this topic Procedures Procedure Name Priority Date/Time Associated Diagnosis Comments PROPHYLAXIS - ADULT Routine 10/18/2024 1 :00 PM EDT Dental calculus Dental plaque INTRAORAL - COMPLETE SERIES OF RADIOGRAPHIC IMAGES Routine 10/17/2024 8:00 AM EDT COMPREHENSIVE ORAL EVALUATION - NEW OR ESTABLISHED PATIENT Routine 10/17/2024 8:00 AM EDT from Last 3 Months or Most Recently Relevant to Health Maintenance Insurance [facility] MEDICAID STAND ADULT
[2025-01-25 10:51] LABS: Estimated Average Glucose 117 mg/dL; Hemoglobin A1C 136.0495 umol/L; Hemoglobin A1c % 5.7 % (<6.0)
[2025-01-25 11:33] LABS: Alanine Aminotransferase 13 U/L (0-31); Alkaline Phosphatase 79 U/L (39-117); Anion Gap 10 (12-20); Aspartate Amino Transferase 22 U/L (5-31); Bilirubin Total 0.2 mg/dL (0.0-1.0); Blood Urea Nitrogen 9 mg/dL (9-16); Calcium 8.9 mg/dL (8.4-10.2); Carbon Dioxide 24 mmol/L (22-29); Chloride 107 mmol/L (96-108); Cholesterol 216 mg/dL (<200); Estimated Glomerular Filt Rate > 60; Glucose Random 94 mg/dL (60-115); HDL Cholesterol 39 mg/dL (>40); LDL Cholesterol Calculated 157 mg/dL (<100); Potassium 4.2 mmol/L (3.3-5.1); Sodium 137 mmol/L (135-145); Total Protein 7.4 g/dL (6.5-8.0); Triglycerides 104 mg/dL (<150)
[2025-01-25 12:11] LABS: CT PCR NOT DETECTED (Not Detect.); NG PCR NOT DETECTED (Not Detect.)
== END 2025-01-25 09:43 | disposition home or self-care (01) ==
LOC: HO.10HDL 09:42
PROVIDERS: Visit Provider Internal Medicine
DX: Z00.00 Encounter for general adult medical examination without abnormal findings (principal); E78.00 Pure hypercholesterolemia, unspecified; E88.9 Metabolic disorder, unspecified; Z11.3 Encounter for screening for infections with a predominantly sexual mode of transmission; Z12.4 Encounter for screening for malignant neoplasm of cervix
CPT/HCPCS: 80053; 80061; 83036; 87491; 87591

== ENCOUNTER 2025-06-15 17:40 | Emergency (ER) | payer MEDICAID, SELFPAY ==
[2025-06-15 18:13] VITALS: BP 134/81; PULSE 90; RESP 18; TEMP 36.2; O2SAT 99; BMI 39.9
--- NOTE | 2025-06-15 18:14 | ED.GENADULT ---
HPI - General Adult General Chief complaint: Skin/Abscess/Foreign Body Stated complaint: Lump on L breast Time Seen by Provider: 06/15/25 20:12 Source: patient Mode of arrival: ambulatory Limitations: no limitations History of Present Illness ED Provider: Wiliam CASEY HPI narrative: The patient is a A1 25-year-old female presenting to the ED for evaluation of pain/tenderness of the left superior lateral breast which began yesterday, and is worse when she moves the left arm. The patient reports performing a self breast exam and was concerned she may have felt a lump. The patient denies associated fever/chills, nausea, vomiting or other systemic complaint. Patient denies associated redness, warmth, drainage from the area, or nipple drainage. The patient denies any recent trauma or illness. The patient is not . Related Data Previous Rx's ?Medication ?Instructions ?Recorded vitamins no.144-folic 1 tab PO DAILY 180 days #180 tabs 06/06/24 acid 400 mcg chewable tablet vitamins no.115-iron 29 1 tab PO DAILY 90 days #90 tabs 06/12/24 mg-folic acid 1 mg chewable tablet ( 19) Allergies Allergy/AdvReac Type Severity Reaction Status Date / Time No Known Allergies Allergy Verified 06/15/25 18:18 Review of Systems Review of Systems: Yes all other systems are reviewed and are negative [facility], [facility] Past Medical History Surgical History Hx of section (~02/2022) Social History Social History Household Members: Children Housing: Apartment Alcohol intake: never Patient Tobacco Use Status: Never used Tobacco Smoked in Last 30 Days: No Use of substances other than those prescribed or required for medical reasons: No Advance Directives: No Advance Directives Information Provided: No Current occupational status: employed and student 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 Vital signs as documented. HEAD: Atraumatic, normocephalic. EYES: EOMs grossly intact, pupils equal, conjunctiva clear, no exudate. ENT: Nares patent, no discharge. Airway patent, no audible stridor, visible mucosa is pink and moist without noted lesions. NECK: trachea is midline, no obvious masses or gross abnormalities. CHEST: Exam performed with maintenance and operations supervisor Amy present as female zone maintenance technician. Exam demonstrates symmetric movement, normal appearance. Left breast demonstrates no erythema, fluctuance, induration, warmth, or other acute abnormality. There is no tenderness or lymphadenopathy of the axilla. LUNGS: Non-labored work of breathing. CARDIAC: No evidence of hypoperfusion. ABDOMEN: Nondistended, no obvious injury. : Deferred. EXTREMITIES: Moves all extremities spontaneously without reported pain. No obvious injury or deformity noted. NEURO: Alert and oriented x3, CN II-XII appear grossly intact. Cerebellar Functioning grossly intact. Speech clear and appropriate. SKIN: Warm, dry, color appropriate. No rashes or lesions noted. Course Course Course Narrative: This is an RME: Additional HPI, ROS, PE not included below will be deferred to primary provider. RME assessment and note performed by: Netta Hernandez PA-C This is a 8-fkn[age]-female who presents to the ER with complaints of left breast pain since yesterday. No overlying skin changes, redness, rashes. No known nipple discharge. Reporting a 7/10 pain. No recent illness, no recent trauma to the area.Unable to visualize in triage. Reporting no chance of . Medical Decision Making Medical Decision Making MDM Narrative: 9:10 PM 06/15/2025 (Yovana CASEY): The patient is a A1 25-year-old female presenting to the ED for evaluation of pain/tenderness of the left superior lateral breast which began yesterday, and is worse when she moves the left arm. The patient reports performing a self breast exam and was concerned she may have felt a lump. The patient denies associated fever/chills, nausea, vomiting or other systemic complaint. Patient denies associated redness, warmth, drainage from the area, or nipple drainage. The patient denies any recent trauma or illness. The patient is not . On exam patient has no cellulitis, fluctuance, induration, warmth, or other acute finding. Patient's symptoms may be related to an enlarged lymph node which has since resolved, versus strain of the pectoralis muscle. Patient will be discharged with supportive care and outpatient follow up for additional imaging as deemed appropriate. Admission/Observation Consideration of admission/observation: Escalation of care including admission/observation considered Discharge Plan Discharge Clinical Impression: Encounter for screening breast examination Patient Disposition: Home, Self-Care Instructions: Breast Self Exam for Women (ED), Breast Mass (ED) Additional Instructions: Thank you for choosing [facility]'s Emergency Department for your care today. The exact cause of your breast tenderness yesterday and today is not entirely clear, however thankfully your breast exam today shows no evidence of an abscess, cellulitis, mastitis, or other infectious or emergent process. At this time there is no indication for admission to the hospital or continued ED observation, and it is safe to discharge you home. You should take alternating (staggered) doses of ibuprofen 600mg and Tylenol 1000mg every 4 hours as needed for any additional pain. Please follow up with your primary care physician for re-evaluation, consideration of breast imaging such as mammogram or ultrasound, additional management of your symptoms, and continued preventative care. If you do not have a primary care physician, please call the [facility] at [phone] to establish a new primary care physician. While waiting to establish your new primary care physician, you can call our Walk-in Care Clinic at [phone] for non-emergency needs. Please return to the emergency department if you develop a severe or sudden change in your symptoms, a fever over 100.4 that does not improve with Tylenol or Ibuprofen, recurrent vomiting, or any other new or worsening symptoms or concerns. Prescriptions: No Action 19 29 mg iron- 1 mg tablet,chewable 1 tab PO DAILY 90 Days Qty: 90 1RF no.144-folic acid 400 mcg tablet,chewable 1 tab PO DAILY 180 Days Qty: 180 1RF Referrals: Ana Ramirez MD [Primary Care Provider, Internal Medicine] Clinical Impression: Encounter for screening breast examination Interventions: ED Discharge Assessment Last Done: 06/15/25 21:22 Discharge Date/Time: 06/15/25 21:23 Print Language: Khmer
--- OUTSIDE RECORDS SUMMARY | 2025-06-15 19:57 | XMS_ITS | Clinical Summary ---
Author Organization [employer] Address [address] [place] [address] Care Team Providers Care Engraving Operator Name Role Phone Unavailable Primary Care Provider Unavailabl e Allergies No known active allergies Medications ibuprofen 600 MG tabletIndicatio ns:Pericoroniti s Take 1 tablet (600 mg) by mouth every 6 (six) hours if needed for mild pain for up to 20 doses. 20 tablet Active Additional Information Patient not taking.Reported on 04/25/2025 chlorhexidine (Peridex) 0.12 % solutionIndicat ions:Pericoroni tis Swish 15 mL morning and night for 1 minute. Spit, do not swallow. Do not eat or drink for 30 minutes following use. 473 mL Active Additional Information Patient not taking.Reported on 04/25/2025 acetaminophen (Tylenol 8 Hour) 650 MG ER tablet Take 1 tablet (650 mg) by mouth every 8 (eight) hours if needed for mild pain. Do not crush, chew, or split. 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 04/25/2025 Dental calculus 10/17/2024 Secondary dental caries 10/17/2024 Tooth impaction 10/17/2024 Pericoronitis 08/17/2024 Prediabetes 11/16/2023 Seborrheic dermatitis of scalp 11/16/2023 Encounters Date Type Department Care Team Description 05/30/2025 8:00 AM EDT Office Visit [facility] ADULT DENT[facility] [address] [place] [address] Fawad Ryan DDS Secondary dental caries (Primary Dx) 05/29/2025 Travel 04/25/2025 8:00 AM EDT Office Visit [facility] [address] [place] [address] Fawad Ryan DDS Tooth impaction (Primary Dx); Fractured dental adventist without loss of material from Last 3 Months Social History Tobacco Use Types Packs/Day Years [...] Sign Reading Time Taken Comments Blood Pressure 124/84 05/30/2025 8:21 AM EDT Pulse - - Temperature - - Respiratory Rate - - Oxygen Saturation - - Inhaled Oxygen Concentration - - Weight - - Height - - Body Mass Index - - Plan of Treatment Upcoming Encounters Date Type Department Care Team (Late st Contact Info) Description 07/04/2025 9:00 AM EST Office Visit [facility] [address] [place] [address] Fawad Ryan DDS [address] [place] [address] 09/20/2025 10:15 AM EST Office Visit [facility] [address] [place] [address] Milli Kohler Health Maintenance Due Date Last Done Comments Depression Screening 1999 Diabetes: Hemoglobin A1C 1999 HIV Screening 1999 SDOH Screening 1999 Disability Screening 1999 Alcohol/Substance Use Screening 2011 Family Planning (PISQ) 2014 HPV Vaccines (1 - 3-dose series) 2014 Hepatitis C Screening 2017 DTaP/Tdap/Td Vaccines (1 - Tdap) 2018 Hepatitis B Vaccines (1 of 3 - 19+ 3-dose series) 2018 Pap Smear 01/28/2020 COVID-19 Vaccine (1 - 2024-2 5 season) 2025 Influenza Vaccine (#1) 2025 Dental Prophylaxis 04/21/2025 10/18/2024 Dental X-Ray: Bitewings 10/18/2025 10/17/2024 Dental Oral Exam 10/24/2025 04/25/2025, 10/17/2024 Tobacco Screening 05/30/2026 05/30/2025 Dental X-Ray: Full Mouth 04/26/2028 025, 10/17/2024, 08/17/2024 Zoster Vaccines (1 of 2) 2049 [...] Procedure Name Priority Date/Time Associated Diagnosis Comments CASE PRESENTATION, DETAILED AND EXTENSIVE TREATMENT PLANNING Routine 05/30/2025 8:00 AM EDT 4 DO RESIN-BASED COMPOSITE - 2 SURF, POSTERIOR Routine 05/30/2025 8:00 AM EDT 5 DO COMPOSITE FILLING Routine 12:00 AM EDT PANORAMIC RADIOGRAPHIC IMAGE Routine 04/25/2025 8:00 AM EDT CASE PRESENTATION, DETAILED AND EXTENSIVE TREATMENT PLANNING Routine 04/25/2025 8:00 AM EDT PERIODIC ORAL EVALUATION - ESTABLISHED PATIENT Routine 04/25/2025 8:00 AM EDT PROPHYLAXIS - ADULT Routine 10/18/2024 1 :00 PM EDT Dental calculus Dental plaque INTRAORAL - COMPLETE SERIES OF RADIOGRAPHIC IMAGES Routine 10/17/2024 8:00 AM EDT from Last 3 Months or Most Recently Relevant to Health Maintenance Insurance [facility] MEDICAID STAND ADULT
--- OUTSIDE RECORDS SUMMARY | 2025-06-15 19:57 | XMS_ITS | Encounter Summary ---
Author Organization [employer] [facility] Address [address] [place] [address] Care Team Providers Care Dishwashing Machine Repairer Name Role Phone Physician, Pcp Unknown Primary Care Provider Yesenia vailable Encounter Details Date Type Department Care Team (Late st Contact Info) Description 01/29/2025 Lab Requisition [facility] - Main Lab [address] [place] [address] nAa Ramirez MD [address] [place] [address] Dr Ke[place] [id number] Encounter for screening for malignant neoplasm of cervix Social History Tobacco Use Types Packs/Day Years Used Date Smoking Tobacco: Never Assessed Comments Unknown Sex and Gender Information Value Date Recorded Sex Assigned at Not on file Legal Sex Female 7:12 AM EDT Gender Identity Not on file Sexual Orientation Not on file documented as of this encounter Plan of Treatment Not on file documented as of this encounter Procedures Procedure Name Priority Date/Time Associated Diagnosis Comments CHLAMYDIA TRACHOMATIS AND NEISSERIA GONORRHOEAE BY TMA, THINPREP Routine 01/25/2025 12:00 AM EDT Encounter for screening for malignant neoplasm of cervix TRICHOMONAS VAGINALIS PCR Routine 01/25/2025 12:00 AM EDT Encounter for screening for malignant neoplasm of cervix PAP SMEAR Routine 01/25/2025 12:00 AM EDT Encounter for screening for malignant neoplasm of cervix documented in this encounter Results * Trichomonas vaginalis molecular study (01/25/2025 12:00 AM EDT) Trichomonas vaginalis Negative Negative LAB MICROBIOLOGY METHOD 01/30/2025 1:29 PM EDT [facility] Brushing/Spatula Cervix uteri structure / Unknown 01/25/2025 01/29/2025 10:36 AM EDT us Ana Ramirez MD LAB BLOOD ORDERABLES Final Re sult [facility] [address] [place] [address], [place] [phone] * Chlamydia trachomatis and neisseria gonorrhoeae by tma, thinprep (01/25/2025 12:00 AM EDT) N. gonorrhoeae, RNA Probe Negative Negative LAB MICROBIOLOGY METHOD 01/30/2025 1:[address] [facility] Chlamydia, RNA Probe Negative Negative LAB MICROBIOLOGY METHOD 01/30/2025 1:[address] [facility] Brushing/Spatula Cervix uteri structure / Unknown 01/25/2025 01/29/2025 10:36 AM EDT us Ana Ramirez MD LAB CYTOLOGY ORDERABLES Final Result [facility] [address] [place] [address], [place] [phone] * Pap smear (01/25/2025 12:00 AM EDT) Interpretation Negative for intraepithelial lesion or malignancy 02/01/2025 8:[address] [facility] General Categorization Negative 02/01/2025 8:[address] [facility] Other Findings Shift in adrienne suggestive of bacterial vaginosis 02/01/2025 8:[address] [facility] LMP 02/01/2025 8:[address] [facility] Comment:2 wks ago Specimen Adequacy Satisfactory for evaluation, endocervical/burrell sformation zone component present 02/01/2025 8:[address] [facility] Pap Methodology Liquid Based Pap Test 02/01/2025 8:[address] [facility] Disclaimer The Pap test is a screening test which carries an inherent false negative rate. These test results should be correlated with the patient's clinical findings and history. This Pap test was processed using an automated screening system. Technical cytopathology services provided by [facility], at [address] [place] [address] (CLIA # [id number]/Delmi Perez MD, Instructor Private.) 02/01/2025 8:[address] [facility] Console Pap Interpretation Reported 02/01/2025 8:[address] [facility] Brushing/Spatula Cervix uteri structure / Unknown 01/25/2025 01/29/2025 10:36 AM EDT us Ana Ramirez MD LAB CYTOLOGY ORDERABLES Final Result [facility] [address] [place] [address], documented in this encounter Visit Diagnoses Diagnosis Encounter for screening for malignant neoplasm of cervix documented in this encounter Care Teams Dishwashing Machine Repairer Relationship Specialty Start Date End Date Physician, Pcp Unknown PCP - General 01/29/25 documented as of this encounter
--- OUTSIDE RECORDS SUMMARY | 2025-06-15 19:57 | XMS_ITS | Encounter Summary ---
Author Organization [facility] Address [address] [place] [address] Care Team Providers Care Child Adolescent Psychiatrist Name Role Phone Physician, Pcp Unknown Primary Care Provider Yesenia vailable Encounter Details Date Type Department Care Team (Late st Contact Info) Description 01/29/2025 Lab Requisition [facility] - Main Lab [address] [place] [address] Ana Ramirez MD [address] [place] [address] [place] [address] Encounter for screening for malignant neoplasm of [...] on file documented as of this encounter Visit Diagnoses Diagnosis Encounter for screening for malignant neoplasm of cervix documented in this encounter Care Teams Child Adolescent Psychiatrist Relationship Specialty Start Date End Date Physician, Pcp Unknown PCP - General 01/29/25 documented as of this encounter
--- OUTSIDE RECORDS SUMMARY | 2025-06-15 19:57 | XMS_ITS | Clinical Summary ---
Author Organization [address] [facility] Address [address] [place] [address] Phone Care Team Providers Care Territory Account Executive Name Role Phone Physician, Pcp Unknown Primary Care Provider Yesenia vailable Social History Tobacco Use Types Packs/Day Years Used Date Smoking Tobacco: Never Assessed Comments Unknown Sex and Gender Information Value Date Recorded Sex Assigned at Not on file Legal Sex Female 7:12 AM EDT Gender Identity Not on file Sexual Orientation Not on file Plan of Treatment Health Maintenance Due Date Last Done Comments HPV Vaccines (1 - 3-dose series) 2014 DTaP,Tdap,and Td Vaccines (1 - Tdap) 2018 Hepatitis B Vaccines (1 of 3 - 19+ 3-dose series) 2018 Depression Screening 08/09/2024 HIV Screening 01/29/2025 Hepatitis C Screening 01/29/2025 Social Influencers of Health Screening 01/29/2025 COVID-19 Vaccine ( - 2023-2 5 season) 2025 Influenza Vaccine (#1) 2025 Cervical Cancer Screening: P ap Smear 01/26/2028 01/25/2025 RSV Immunization Adult Patie nts (1 - 1-dose 75+ series) 2074 HIB Vaccines Aged Out No longer eligi ble based on patient's age to complete this topic Hepatitis A Vaccines Aged Out No long er eligible based on patient's age to complete this topic IPV Vaccines Aged Out No longer eligi ble based on patient's age to complete this topic MMR Vaccines Aged Out No longer eligi ble based on patient's age to complete this topic Meningococcal ACWY Vaccine Aged Out N o longer eligible based on patient's age to complete this topic Meningococcal B Vaccine Aged Out No l onger eligible based on patient's age to complete this topic Pneumococcal Vaccine: Pediat rics (0 to 5 Years) and At-Risk Patients (6 to 49 Years) Aged Out No longer eligi ble based on patient's age to complete this topic RSV Immunization Patients Un regla 20 months Aged Out No longer eligible b ased on patient's age to complete this topic Varicella Vaccines Aged Out No longer eligible based on patient's age to complete this topic Procedures Procedure Name Priority Date/Time Associated Diagnosis Comments PAP SMEAR Routine 01/25/2025 12:00 AM EDT Encounter for screening for malignant neoplasm of cervix from Last 3 Months or Most Recently Relevant to Health Maintenance Results * Pap smear (01/25/2025 12:00 AM EDT) Interpretation Negative for intraepithelial lesion or malignancy 02/01/2025 8:08 AM [facility] General Categorization Negative [facility] Other Findings Shift in adrienne suggestive of bacterial vaginosis 02/01/2025 8:08 AM [facility] LMP 02/01/2025 8:08 AM [facility] Comment:2 wks ago Specimen Adequacy Satisfactory for evaluation, endocervical/burrell sformation zone component present 02/01/2025 8:08 AM [facility] Pap Methodology Liquid Based Pap Test 02/01/2025 8:08 [facility] Disclaimer The Pap test is a screening test which carries an inherent false negative rate. These test results should be correlated with the patient's clinical findings and history. This Pap test was processed using an automated screening system. Technical cytopathology services provided by [facility], at [address] [place] [address], [place] [address] (CLIA # [id number]/Delmi Perez MD, Home Companion.) 02/01/2025 8:08 AM [facility] Console Pap Interpretation Reported 02/01/2025 8:08 AM [facility] Brushing/Spatula Cervix uteri structure / Unknown 01/25/2025 01/29/2025 10:36 AM EDT Ana Ramirez MD LAB CYTOLOGY ORDERABLES Final Result [facility] [address] [place] [address], from Last 3 Months or Most Recently Relevant to Health Maintenance Insurance MEDICAID - [place] Care Teams Territory Account Executive Relationship Specialty Start Date End Date Physician, Pcp Unknown PCP - General 01/29/25
[2025-06-15 20:16] VITALS: BP 117/63; PULSE 100; RESP 18; TEMP 36.9; O2SAT 98
[2025-06-15 21:22] VITALS: BP 134/65; PULSE 98; RESP 14; TEMP 36.6; O2SAT 99
== END 2025-06-15 21:23 | disposition home or self-care (01) ==
PROVIDERS: Emergency Provider Emergency Medicine Emergency Medical Services; PCP Internal Medicine
DX: N63.20 Unspecified lump in the left breast, unspecified quadrant (principal); M79.602 Pain in left arm
CPT/HCPCS: 99283; 99284